=== PATIENT | male | born 1965 | race Caucasian/White ===

== ENCOUNTER 2018-01-26 20:18 | Emergency (ER) | payer BC ==
[~2018-01-26] VITALS: Ht 177.8 cm; Wt 79.4 kg
--- NOTE | 2018-01-26 20:43 | NUR ---
PT IN BED. MD MARTINEZ AT BEDSIDE CONDUCTING MD LITTLEJOHN.
--- NOTE | 2018-01-26 20:54 | NUR ---
XRAY AT BEDSIDE
--- NOTE | 2018-01-26 21:50 | NUR ---
Patient discharged to home in stable conditon. Written and verbal after care instructions given. Patient verbalizes understanding of instructions. Patient reported reduced anxiety about finger upon discharge. Patient able to ambulate unassisted with steady gait. Patient left with all personal belongings.
[2018-01-26 21:53] VITALS: BP 138/80
== END 2018-01-26 21:50 | disposition home or self-care (01) ==
LOC: ER 20:18
DX: S56.412A Strain of extensor muscle, fascia and tendon of left index finger at forearm level, initial encounter (principal); Z91.040 Latex allergy status; W19.XXXA Unspecified fall, initial encounter; Y93.89 Activity, other specified; Y92.89 Other specified places as the place of occurrence of the external cause; Y99.8 Other external cause status
CPT/HCPCS: 73140; A4663